=== PATIENT | female | born 1950 | race Asian ===

== ENCOUNTER → 2017-03-10 | Outpatient (CLI) | payer MEDICARE, OTHER ==
[~2017-03-10] MED LIST: ADV250 IH; AMLO-512 PO; ASPI-556 PO; CALC1TAB15 PO; ESOM20CA31 PO; FLUT16H NASAL; LORA10TA7 PO; MONT10TA21 PO; SIMV-260 PO; TELM40 PO; VITA1CAP PO
== END | disposition home or self-care (01) ==
LOC: RADPV 08:45
PROVIDERS: ATTEND Family Medicine
DX: Z13.820 Encounter for screening for osteoporosis (principal); M81.0 Age-related osteoporosis without current pathological fracture
CPT/HCPCS: 77080